=== PATIENT | male | born 1980 | race Hispanic/Latino ===

== ENCOUNTER 2018-02-02 17:49 | Observation (INO) | payer SELFPAY ==
[2018-02-02 20:11] LABS: Bilirubin Negative (Negative); Blood, Urine Negative (Negative); Clarity CLEAR (Clear); Glucose, Urine (Dipstick) Negative (Negative); Leukocyte Negative (Negative); Nitrite Negative (Negative); Protein, Urine (Dipstick) 30 mg/dL (Neg-Trace); Specific Gravity, Urine 1.017 (1.002-1.036); Urobilinogen 0.2 mg/dL (0.2-1.0); pH, Urine 5.5 (5.0-9.0)
[2018-02-02 20:16] LABS: Bacteria/HPF None Seen HPF (None Seen); Pathc Cast-AUWi Flag 2.47 (0-2.49); RBC/HPF 0-3 HPF (0-3); Squamous Epithelial 0-3 HPF (0-3); WBC/HPF 0-3 HPF (0-3)
[2018-02-02 20:25] LABS: Hyaline Casts/LPF 7-10 HYALINE CAST LPF (0-3 Hyaline)
--- NOTE | 2018-02-02 21:06 | ULT ---
RIGHT UPPER QUADRANT ULTRASOUND: 02/02/18 HISTORY: Abdominal pain. FINDINGS: The liver demonstrates increased echogenicity consistent with fatty infiltration. No focal mass or in trahepatic ductal dilatation is seen. No gallstones, gallbladder wall thickening or pericholecystic f luid is seen. The gallbladder is upper limits of normal in thickness measuring 3 mm. The common duct measures 6 mm in diameter. The right kidney and visualized portions of the pancreas are unremarkable . No free fluid is seen in Cox's pouch. IMPRESSION: 1. Fatty liver. 2. No evidence of cholelithiasis. POS: [facility]
[2018-02-02] MEDS ORDERED: Sodium Chloride 0.9% 1,000 ML IV SCH (22:49)
[2018-02-02] MEDS ORDERED: Acetaminophen 325 MG TAB PO PRN ×2 (22:49→22:50)
[2018-02-02] MEDS ORDERED: Ondansetron HCl/PF 4 MG/2 ML Vial IVP PRN ×2 (22:49→22:50)
[2018-02-02] MEDS ORDERED: Ondansetron ODT 4 MG TAB SL PRN (22:49)
[2018-02-02] MEDS ORDERED: Ondansetron ODT 4 MG TAB PO PRN (22:50)
[2018-02-02 22:56] LABS: #Eosinphils 0.1 thou/uL (0.0-0.7); #Lymphocytes 0.8 thou/uL (1.20-3.40); #Monocytes 0.7 thou/uL (0.11-0.59); #Neutrophils 12.4 thou/uL (1.40-6.50); %Basophils 0.3 % (0.0-1.0); %Eosinophils 0.5 % (0.0-10.0); %Lymphocytes 5.9 % (21.0-51.0); %Monocytes 4.8 % (0.0-10.0); %Neutrophils 88.5 % (42.0-75.0); Hemoglobin 14.9 g/dL (14.0-18.0); Mean Corpuscular HGB CONC 35.2 g/dL (32.0-36.0); Mean Corpuscular Volume 91.1 fL (78.0-98.0); Platelet Count 260 thou/uL (130-400); RBC Distribution Width 12.6 % (11.5-14.5); Red Blood Cell (RBC) Count 4.64 mill/uL (4.70-6.10)
[2018-02-02 23:03] LABS: Lactic Acid 2.7 mmol/L (0.5-2.2)
[2018-02-02 23:08] LABS: ALT (SGPT) 50 U/L (8-55); AST (SGOT) 31 U/L (5-34); Albumin 4.4 g/dL (3.5-5.0); Alkaline Phosphatase 78 U/L (40-150); Anion Gap 16 mmol/L (10-20); BUN (Urea Nitrogen) 18 mg/dL (8.9-20.6); Bilirubin, Total 0.7 mg/dL (0.2-1.2); Calc. Creatinine Clearance 0 mL/min (70-130); Calcium 8.9 mg/dL (7.8-10.44); Carbon Dioxide 19 mmol/L (22-29); Chloride 109 mmol/L (98-107); Estimated GFR-MDRD 55; Globulin 2.6 g/dL (2.4-3.5); Glucose 98 mg/dL (70-105); Sodium 140 mmol/L (136-145)
[2018-02-02] MEDS: Lactated Ringer's 1,000 ML IV SCH (23:45)
[2018-02-03] MEDS: Piperacillin/Tazobactam 4.5 GM in Sodium Chloride 0.9% 100 ML IVPB SCH ×2 (00:41→08:28)
--- NOTE | 2018-02-03 01:51 | PDOC.FPRHP ---
- History of Present Illness Chief Complaint: Vomiting History of Present Illness: Mr. Garcia presents today after 10 episodes of vomiting, nausea, and diarrhea beginning around 1000. He had some abdominal pain during this but denies any bleeding, chest pain, or shortness of breath. He denies any unusual dietary habits. He has been dieting recently and started pre-testosterone and estrogen blockers. ED Course: CXR, CT-abd., RUQ US, UA, CBC, CMP, 3L NS - Allergies/Adverse Reactions Allergies Allergy/AdvReac Type Severity Reaction Status Date / Time lactose Allergy Verified 02/03/18 05:16 No Known Drug Allergies Allergy Verified 02/02/18 23:49 - Home Medications Medication Instructions Recorded Confirmed Type Lisinopril/Hydrochlorothiazide 1 tablet PO DAILY 02/02/18 02/02/18 History [Lisinopril-Hctz 20-25 mg Tab] Multivitamin [Daily Multiple 1 each PO DAILY 02/02/18 02/02/18 History Vitamin] - History PMHx:HTN, HLD PSHx: none FHx:DMII Social:none - Review of Systems General: reports: fever/chills, weight/appetite/sleep changes (intentional weight loss of 10 lbs) Eyes: denies: eye pain, vision changes ENT: denies: rhinorrhea Respiratory: denies: cough, congestion, shortness of breath Cardiovascular: denies: chest pain, palpitation Gastrointestinal: reports: nausea, vomiting, diarrhea, abdominal pain. denies: constipation, GI bleeding Genitourinary: denies: incontinence, dysuria Skin: denies: rashes, lesions Musculoskeletal: denies: pain, tenderness Neurological: denies: numbness, syncope - Vital signs BP: [126/72] HR: [94] RR: [18] Tmax: [99.5] Pox: [100]% on [RA Wt: [] - Physical Exam Constitutional: NAD HEENT: normocephalic and atraumatic, grossly normal vision, grossly normal hearing Neck: supple, trachea midline Chest: no-tender to palpation Heart: RRR, normal S1/S2, no murmurs/rubs/gallops, pulses present Lungs: CTAB, no respiratory distress Abdomen: soft, non-tender, bowel sounds present, no masses/distention Musculoskeletal: normal structure, ROM grossly normal Neurological: no focal deficit, CN II-XII intact Skin: no rash/lesions, good turgor Heme/Lymphatic: no unusual bruising or bleeding Psychiatric: normal mood and affect FMR H&P: Results - Labs Result Diagrams: 02/03/18 03:51 02/03/18 03:51 Lab results: WBC 14.0 thou/uL (4.8-10.8) H 02/02/18 21:27 Hgb 14.9 g/dL (14.0-18.0) 02/02/18 21:27 Hct 42.3 % (42.0-52.0) 02/02/18 21: MCV 91.1 fL (78.0-98.0) 02/02/18 21: Plt Count 260 thou/uL (130-400) 02/02/18 21: Neutrophils % 88.5 % (42.0-75.0) H 02/02/18 21:27 Sodium 140 mmol/L (136-145) 02/02/18 21: Potassium 4.0 mmol/L (3.5-5.1) 02/02/18 21: Chloride 109 mmol/L (98-107) H 02/02/18 21:27 Carbon Dioxide 19 mmol/L (22-29) L 02/02/18 21: BUN 18 mg/dL (8.9-20.6) 02/02/18 21: Creatinine 1.44 mg/dL (0.6-1.3) H 02/02/18 21:27 Glucose 98 mg/dL (70-105) 02/02/18 21: Lactic Acid 2.7 mmol/L (0.5-2.2) H 02/02/18 21:27 Calcium 8.9 mg/dL (7.8-10.44) 02/02/18 21: Total Bilirubin 0.7 mg/dL (0.2-1.2) 02/02/18 21: AST 31 U/L (5-34) 02/02/18 21: ALT 50 U/L (8-55) 02/02/18 21:27 Alkaline Phosphatase 78 U/L (40-150) 02/02/18 21: Serum Total Protein 7.0 g/dL (6.0-8.3) 02/02/18 21:27 Albumin 4.4 g/dL (3.5-5.0) 02/02/18 21:27 Urine Ketones Negative mg/dL (Negative) 02/02/18 19:31 Urine Blood Negative (Negative) 02/02/18 19:31 Urine Nitrite Negative (Negative) 02/02/18 19:31 Ur Leukocyte Esterase Negative (Negative) 02/02/18 19:31 Urine RBC 0-3 HPF (0-3) 02/02/18 19:31 Urine WBC 0-3 HPF (0-3) 02/02/18 19:31 Ur Squamous Epith Cells 0-3 HPF (0-3) 02/02/18 19:31 Urine Bacteria None Seen HPF (None Seen) 02/02/18 19:31 FMR H&P: A/P - Problem List (1) Volume depletion Current Visit: Yes Status: Acute Code(s): E86.9 - VOLUME DEPLETION, UNSPECIFIED (2) AGUSTÍN (acute kidney injury) Current Visit: Yes Status: Acute Code(s): N17.9 - ACUTE KIDNEY FAILURE, UNSPECIFIED (3) Gastroenteritis Current Visit: Yes Status: Acute Code(s): K52.9 - NONINFECTIVE GASTROENTERITIS AND COLITIS, UNSPECIFIED (4) Non-alcoholic fatty liver disease Current Visit: Yes Status: Acute (5) HTN (hypertension) Current Visit: Yes Status: Acute Code(s): I10 - ESSENTIAL (PRIMARY) HYPERTENSION (6) HLD (hyperlipidemia) Current Visit: Yes Status: Acute Code(s): E78.5 - HYPERLIPIDEMIA, UNSPECIFIED - Plan 1. Volume depletion - received 3L NS - Feeling much better - encourage advancing diet as tolerated - monitor blood pressure and pulse 2. Acute kidney injury, resolved - 2/2 volume depletion - repeat labs show much improvement - monitor urine output 3. Gastroenteritis - likely viral - lactoferrin and stool cultures 4. NAFLD - likely part of a metabolic syndrome - encouraged continuation of dietary changes 5. HTN - resume home meds 6. HLD - encouraged diet changes FMR H&P: Upper Level - Pertinent history 37 yo male here for 1 day history of N/V/D. Pt reports he was in normal state of health when he began throwing up and having watery stools. Denies any unusual travel or sick contacts. Came to ER because he was not able to hold anything down. He recently has been diagnosed with high cholesterol so he was trying to get into better shape by taking multivitamins and testosterone supplements which he has taken in the past, but thinks those could have been the source of the N/V/D Hx of HTN, HLD - Pertinent findings 126/72 HR: 94 Temp: 99.5 O2sat: 100% on RA RR: 18 GEN: NAD, pleasant, AAOx4 CARD: RRR, no m/g/r PULM: CTAB ABD: soft, non tender, ND EXT: no cyanosis or edema Lactic acid: 3.2, 2.7 CXR: unremarkable CTAbd: fatty liver, small hiatal hernia - Plan Date/Time: 02/03/18 [id number] I, Fracisco Russell DO, have evaluated this patient and agree with findings/plan as outlined by sports management internship resident. Pertinent changes/additions are listed here. 1. SIRS patient initially came in with severe lab values and feeling terrible, but after receiving 3liters NS , he felt much better and rechecked labs all improved. Will continue to monitor, but his clinical picture is significantly better than when he first arrived at [facility]. He received vanc and zosyn and will continue to look for a source but this appears to be due to dehydration 2/2 viral gastroenteritis. Blood, urine cultures 2. Lactic acidosis improved on recheck, continue with fluids 3. AGUSTÍN improved on recheck; continue with fluids and recheck in the AM 4. HTN monitor and add home meds as needed 5. HLD 6. dehydration Attending Addendum - Attending Addendum Date/Time: 02/03/18 1025 I personally evaluated the patient and discussed the management with Dr. Angeles/ Drew. I agree with the History, Examination, Assessment and Plan documented above with any addition or exceptions noted below. Patient here with acute onset of multiple episodes of vomiting and diarrhea with weakness and fatigue. Presented to outside ER and concern for sepsis versus septic shock. Initial labs showed highly elevated WBC as well as thrombocytosis and polycythemia that was likely related to hemoconcentration. However, he did have elevated lactate and evidence of AGUSTÍN. Patient fluid resuscitated with immediate improvement in metabolic derangements. He was transferred here for higher level of care. On arrival, he no longer met sepsis criteria. Procalcitonin indeterminate, but no evidence at this time of bacterial infection and patient feels well. Tolerating PO well and denies any nausea. Continuing to have diarrhea for which we will obtain stool studies. If his labs do not appear drastically abnormal this afternoon and he is feeling well, can consider discharge home with close follow up and good ER return precautions.
[2018-02-03 03:12] VITALS: BMI 40.0
[2018-02-03 04:51] LABS: ALT (SGPT) 51 U/L (8-55); AST (SGOT) 32 U/L (5-34); Albumin 4.5 g/dL (3.5-5.0); Alkaline Phosphatase 76 U/L (40-150); Anion Gap 16 mmol/L (10-20); BUN (Urea Nitrogen) 14 mg/dL (8.9-20.6); Bilirubin, Total 0.9 mg/dL (0.2-1.2); Calc. Creatinine Clearance 132 mL/min (70-130); Calcium 9.1 mg/dL (7.8-10.44); Carbon Dioxide 17 mmol/L (22-29); Chloride 108 mmol/L (98-107); Estimated GFR-MDRD 61; Globulin 2.8 g/dL (2.4-3.5); Glucose 110 mg/dL (70-105); Potassium 3.8 mmol/L (3.5-5.1); Protein, Total 7.3 g/dL (6.0-8.3); Sodium 137 mmol/L (136-145)
[2018-02-03] MEDS ORDERED: Vancomycin HCl 1 GM in Premix Bag 1 BAG IVPB SCH (05:00)
[2018-02-03 05:43] LABS: Eosinophils 2 % (0-10); Hemoglobin 14.3 g/dL (14.0-18.0); Lymphocytes 16 % (21-51); MDiff Complete? YES; Mean Corpuscular HGB CONC 34.8 g/dL (32.0-36.0); Mean Corpuscular Hemoglobin 31.3 pg (27.0-31.0); Mean Corpuscular Volume 89.9 fL (78.0-98.0); Mean Platelet Volume 8.6 fL (7.4-10.4); Monocytes 3 % (0-10); Neutrophil 79 % (42-75); PLT Morphology Comment Appears Adequate; Platelet Count 301 thou/uL (130-400); RBC Distribution Width 12.7 % (11.5-14.5); RBC Morphology Normal; Red Blood Cell (RBC) Count 4.56 mill/uL (4.70-6.10); White Blood Cell (WBC) Count 12.1 thou/uL (4.8-10.8)
--- NOTE | 2018-02-03 06:12 | PDOC.FM ---
- Subjective Subjective: Pt feeling well this AM, nausea and vomiting have resolved, pt has tolerated PO fluids and some jello. Diarrhea persists but improving, 2 episodes yesterday. No other complaints per pt. ROS: no fever/chills, no cp no palpitations, no sob no cough, no n/v - Objective MAR Reviewed: Yes Vital Signs & Weight: Vital Signs (12 hours) Temp Pulse Resp BP Pulse Ox 02/03/18 05:11 98.1 F 90 16 117/71 94 L 02/03/18 00:25 98.5 F 89 18 108/70 98 02/02/18 22:30 98.5 F 89 18 02/02/18 22:15 97.8 F 101 H 20 115/79 100 Weight Weight 123.014 kg I&O: 02/01/18 02/02/18 02/03/18 06:59 06:59 06:59 Intake Total 100 Balance 100 Result Diagrams: 02/03/18 03:51 02/03/18 03:51 <Paul Harrell - Last Filed: 02/03/18 06:59> - Objective Vital Signs & Weight: Vital Signs (12 hours) Temp Pulse Resp BP Pulse Ox 02/03/18 08:00 98.3 F 93 20 95 02/03/18 07:51 98.3 F 93 20 104/65 95 02/03/18 05:11 98.1 F 90 16 117/71 94 L 02/03/18 00:25 98.5 F 89 18 108/70 98 Weight Weight 123.014 kg I&O: 02/02/18 02/03/18 02/04/18 06:59 06:59 06:59 Intake Total 2150 Balance 2150 Result Diagrams: 02/03/18 03:51 02/03/18 03:51 <Roque Solares - Last Filed: 02/03/18 10:37> Phys Exam - Physical Examination Constitutional: NAD HEENT: moist MMs, sclera anicteric Respiratory: no wheezing, clear to auscultation bilateral Cardiovascular: RRR, no significant murmur Gastrointestinal: soft, non-tender, positive bowel sounds Musculoskeletal: no edema Neurological: moves all 4 limbs Psychiatric: normal affect Skin: no rash, normal turgor <Paul Harrell Last Filed: 02/03/18 06:59> Dx/Plan (1) Gastroenteritis Code(s): K52.9 - NONINFECTIVE GASTROENTERITIS AND COLITIS, UNSPECIFIED Status : Acute (2) Volume depletion Code(s): E86.9 - VOLUME DEPLETION, UNSPECIFIED Status: Acute (3) AGUSTÍN (acute kidney injury) Code(s): N17.9 - ACUTE KIDNEY FAILURE, UNSPECIFIED Status: Acute (4) HLD (hyperlipidemia) Code(s): E78.5 - HYPERLIPIDEMIA, UNSPECIFIED Status: Acute (5) HTN (hypertension) Code(s): I10 - ESSENTIAL (PRIMARY) HYPERTENSION Status: Acute (6) Non-alcoholic fatty liver disease Status: Acute - Plan Plan: Sepsis vs. +SIRS due to viral gastroenteritis. A- was volume depleted, received 3L NS and feeling much better, now maintenance fluids. Pt no longer meets SIRS criteria. P- advancing diet as tolerated - f/u stool cultures - f/u lactoferrin - DC today and f/u outpt Acute kidney injury, resolving A- 2/2 volume depletion, Cr. 1.33 down from 1.44 yesterday P- monitor urine output NAFLD - likely part of a metabolic syndrome - encouraged continuation of dietary changes HTN - resume home meds HLD - encouraged diet changes <Paul Harrell - Last Filed: 02/03/18 06:59> (1) Volume depletion Code(s): E86.9 - VOLUME DEPLETION, UNSPECIFIED Status: Acute (2) AGUSTÍN (acute kidney injury) Code(s): N17.9 - ACUTE KIDNEY FAILURE, UNSPECIFIED Status: Acute (3) Gastroenteritis Code(s): K52.9 - NONINFECTIVE GASTROENTERITIS AND COLITIS, UNSPECIFIED Status : Acute (4) Non-alcoholic fatty liver disease Status: Acute (5) HTN (hypertension) Code(s): I10 - ESSENTIAL (PRIMARY) HYPERTENSION Status: Acute (6) HLD (hyperlipidemia) Code(s): E78.5 - HYPERLIPIDEMIA, UNSPECIFIED Status: Acute <Roque Solares - Last Filed: 02/03/18 10:37> Attending Addendum - Attending Addendum Date/Time: 02/03/18 1034 I personally evaluated the patient and discussed the management with Dr. Harrell. I agree with the History, Examination, Assessment and Plan documented above with any addition or exceptions noted below. Patient feeling much improved. Sepsis resolved and he is feeling well. Labs normalized with fluid hydration and antibiotics but no current evidence of bacterial infection. If labs are benign and he is feeling well this afternoon, consider discharge home with close outpatient follow up. <Roque Solares - Last Filed: 02/03/18 10:37>
[2018-02-03] MEDS: Lactated Ringer's 1,000 ML IV SCH ×3 (06:32→17:23)
[2018-02-03] MEDS ORDERED: Famotidine 20 MG TAB PO SCH (09:00)
[2018-02-03 19:33] VITALS: BP 120/86; TEMP 98.3
--- NOTE | 2018-02-04 00:30 | DIS-2 ---
DATE OF ADMISSION: 02/02/2018 DATE OF DISCHARGE: 02/03/2018 RESIDENT: Paul Harrell M.D. ADMITTING ATTENDING: Dr. Roque Solares. DISCHARGE ATTENDING: Dr. Roque Solares. CONSULTS: None. PROCEDURES: None. PRIMARY DIAGNOSES: Viral gastroenteritis, hypovolemia. SECONDARY DIAGNOSES: Nonalcoholic fatty liver disease, hypertension, hyperlipidemia. DISCHARGE MEDICATIONS: Zofran 4 mg p.o. q.6 hours p.r.n. 56 tabs, famotidine 20 mg p.o. b.i.d., 60 t abs, acetaminophen 650 mg q.4 hours p.r.n., lisinopril/hydrochlorothiazide one tablet p.o. daily 20 m g/25 mg tablet, multivitamin 1 each p.o. daily. DISCONTINUED MEDICATIONS: None. HISTORY OF PRESENT ILLNESS AND HOSPITAL COURSE: A 37-year-old male with history of hypertension, hyp erlipidemia presented with multiple episodes of nausea, vomiting, and diarrhea. Patient was SIRS pos itive on presentation and was given 3 liters of Lactated Ringer's. CT abdomen and right upper quadra nt ultrasound were performed and were negative for pertinent findings. Patient clinically improved a fter volume resuscitation and no longer met SIRS criteria. White blood cell count decreased from 14 to 12.1 during hospital stay. Symptoms of nausea and vomiting were controlled with Zofran, and sita nt was surely able to tolerate p.o. intake after SIRS criteria were negative and p.o. intake was tole rated. Patient was discharged with explicit instructions to return to doctor or emergency room if he should feel a return of symptoms that he had on initial presentation. DISPOSITION: Stable. DISCHARGE INSTRUCTIONS: 1. Location: Home. 2. DIET: Regular diet as tolerated. 3. Activity: As tolerated. 4. Followup: Follow up in 1 week with [facility].
--- NOTE | 2018-02-07 13:33 | EKG ---
Test Reason : Blood Pressure : / mmHG Vent. Rate : 100 BPM Atrial Rate : 100 BPM P-R Int : 126 ms QRS Dur : 080 ms QT Int : 332 ms P-R-T Axes : 018 050 017 degrees QTc Int : 428 ms Normal sinus rhythm Low voltage QRS Borderline ECG Confirmed by SAHIL ELAINE MD ([id number]), editor producer NAKIA BAUTISTA ([id number]) on 02/07/2018 1:32:44 PM Referred By: Confirmed By:SAHIL ELAINE MD
== END 2018-02-03 19:10 | disposition home or self-care (01) ==
LOC: ERS 17:49 → T4-B 22:20
PROVIDERS: ADMIT Student in an Organized Health Care Education/Training Program; ATTEND Student in an Organized Health Care Education/Training Program
DX: A08.4 Viral intestinal infection, unspecified (principal); E86.1 Hypovolemia; E86.9 Volume depletion, unspecified; I10 Essential (primary) hypertension; E78.5 Hyperlipidemia, unspecified; N17.9 Acute kidney failure, unspecified; K52.9 Noninfective gastroenteritis and colitis, unspecified; K76.0 Fatty (change of) liver, not elsewhere classified; E87.2 Acidosis; Z79.899 Other long term (current) drug therapy; Z91.011 Allergy to milk products
CPT/HCPCS: 36415; 76705; 80053; 81003; 81015; 83605; 83630; 84145; 85025; 87045; 87046; 87086; 87449; 87899; 93005; 96360; 96361; 96365; 96367; A4216; G0378; J2543; J3370; J7050